=== PATIENT | male | born 1985 | race Caucasian/White ===

== ENCOUNTER → 2017-10-10 | Outpatient (CLI) | payer BC ==
[~2017-10-10] MED LIST: ADAL40PE4 SQ; AZAT100T2 PO; FOLI-68 PO; LACT1TAB2 PO; MESA1.2T2 PO; MESA400T PO; METH25VI31 IJ; METR250 PO; NONE CURRENTLY; ONDA4TAB PO; PER PO; PRE20 PO; PRED-314 PO; REMICADE
[2017-10-10 16:50] LABS: PLATELET COUNT, AUTOMATED 322 K/uL (150-450)
== END ==
LOC: LAB 16:21
PROVIDERS: ATTEND Nurse Practitioner Family
DX: K51.90 Ulcerative colitis, unspecified, without complications (principal); Z79.899 Other long term (current) drug therapy
CPT/HCPCS: 36415; 82040; 82247; 82310; 82374; 82435; 82565; 82947; 84075; 84132; 84155; 84295; 84450; 84460; 84520; 85025; 85651; 86140; 86480

== ENCOUNTER → 2017-11-13 | Outpatient (CLI) | payer BC ==
[2017-11-13 08:23] LABS: PLATELET COUNT, AUTOMATED 228 K/uL (150-450)
== END ==
LOC: LAB 08:05
PROVIDERS: ATTEND Nurse Practitioner Family
DX: R10.13 Epigastric pain (principal); K92.1 Melena
CPT/HCPCS: 36415; 82040; 82247; 82310; 82374; 82435; 82565; 82947; 84075; 84132; 84155; 84295; 84450; 84460; 84520; 85025; 86140

== ENCOUNTER 2018-01-29 00:51 | Day surgery (SDC) | payer BC ==
[~2018-01-29] VITALS: Ht 167.6 cm; Wt 62.6 kg
[2018-01-29] VITALS (7 sets, daily range): BP systolic 103–130; BP diastolic 65–87
[2018-01-29] MEDS ORDERED: PROPOFOL EMUL(*) 10MG/ML 20 ML 40 ML ONE (08:37)
[2018-01-29] MEDS ORDERED: NORMOSOL R SOLN(*) 1000 ML BAG 1,000 ML IV PRN (11:30)
[2018-01-29] MEDS ORDERED: LIDOCAINE/SOD BICARB 8.4% SYR ID ONE (11:30)
[2018-01-29] MEDS ORDERED: PROPOFOL EMUL(*) 10MG/ML 20 ML 20 ML ONE ×2 (12:20→12:37)
== END 2018-01-29 14:18 | disposition home or self-care (01) ==
LOC: OR 00:51
PROVIDERS: ATTEND Internal Medicine Gastroenterology
DX: Z12.11 Encounter for screening for malignant neoplasm of colon (principal); K63.5 Polyp of colon; K64.9 Unspecified hemorrhoids; I10 Essential (primary) hypertension; K52.9 Noninfective gastroenteritis and colitis, unspecified
CPT/HCPCS: 00811; 45380; 88305; J2704